=== PATIENT | male | born 1945 | race Caucasian/White ===

== ENCOUNTER 2018-04-30 20:34 | Emergency (ER) | payer BC, OTHER ==
--- NOTE | 2018-04-30 22:46 | EDPHY ---
H & P Time Seen by Provider: 04/30/18 21:36 HPI/ROS: CHIEF COMPLAINT: Cough, congestion HISTORY OF PRESENT ILLNESS: Patient is a 71-year-old male who presents emergency department with chest congestion. The patient states that on Thursday he noted he had a ping-pong shot striking his right chest on a dresser. He had significant pain on his right chest. He had difficulty sleeping. On Thursday he went to the emergency department and had a chest x-ray which was reported as negative. He was given incentive spirometer and ibuprofen. He states that over the next 2 days he was doing okay. However today he began to developed some congestion in his chest. He feels as though he has a slight cough. He denies fevers or chills. No worsening pain. No leg pain or swelling. He recently traveled here from [place] for vacation. REVIEW OF SYSTEMS: 10 systems were reveiwed and are negative with the exception of the elements mentioned in the history of present illness. Past Medical/Surgical History: Includes hypertension, GERD Smoking Status: Never smoked Physical Exam: 36.9, 187/94, 80, 18, 96% on room air GENERAL: Well-appearing, in no acute distress, alert. HEENT: Eyes normal to inspection, normal pharynx, no signs of dehydration. NECK: Normal, supple. RESPIRATORY: Clear to auscultation bilaterally, no rales, rhonchi or wheezing. CVS: Regular rate and rhythm, no rubs, murmurs, or gallops. Chest wall: Patient has mild right lateral chest wall tenderness palpation. No crepitus. ABDOMEN: Soft, nontender, nondistended, no organomegaly. BACK: Normal to inspection, no CVA tenderness. SKIN: Normal color, no rash, warm, dry. No pallor. EXTREMITIES: No pedal edema, no calf tenderness, no Homans sign or cords, no joint swelling. NEURO/PSYCH: Alert and oriented, normal mood and affect, normal motor sensory exam. Constitutional: Initial Vital Signs Temperature (C) 36.9 C 04/30/18 20:41 Heart Rate 82 04/30/18 20:41 Respiratory Rate 18 04/30/18 20:41 Blood Pressure 187/94 H 04/30/18 20:41 O2 Sat (%) 96 04/30/18 20:41 O2 Delivery Mode Room Air Allergies/Adverse Reactions: acetazolamide [From Diamox Sequels] Allergy (Verified 04/30/18 20:38) azithromycin Allergy (Verified 04/30/18 20:39) Home Medications: Medication Instructions Recorded NK [No Known Home Meds] 04/30/18 Medical Decision Making - Diagnostics Imaging Results: Imaging Impressions Chest X-Ray 04/30/18 21:06 Impression: Probable nondisplaced lateral right sixth rib fracture. Findings discussed with Madyson Brooks April 30, 2018 at 2320 hours. ED Course/Re-evaluation: In the emergency department I discussed possible etiologies with the patient. I answered all his questions. I reviewed the chest x-ray report from his previous image. Chest x-ray was ordered. Chest x-ray: Please refer the dictated report by Dr. Parra. He may see a 6th rib fracture. No pneumothorax. No pneumonia. Discussed the result with the patient. I answered all his questions. He will continue to use incentive spirometry. He was given warnings prior to leaving. Will return with worsening symptoms. Differential Diagnosis: My differential includes but is not limited to pneumothorax, hemothorax, rib fracture, pneumonia, bronchitis, pulmonary embolus Departure - Departure Disposition: Home, Routine, Self-Care Clinical Impression: Cough Rib fracture Qualifiers: Encounter type: initial encounter Rib fracture type: single rib Fracture type: closed Laterality: left Qualified Code(s): S22.32XA - Fracture of one rib, left side, initial encounter for closed fracture Condition: Good Instructions: Rib Fracture (ED) Additional Instructions: Continue to use your incentive spirometer. Return with increasing pain, fever or shortness of breath. Referrals: GIL MONTANO [Other] - As per Instructions
[2018-05-01 03:47] VITALS: BP 134/66
== END 2018-04-30 23:45 | disposition home or self-care (01) ==
DX: S22.32XA Fracture of one rib, left side, initial encounter for closed fracture (principal); R09.89 Other specified symptoms and signs involving the circulatory and respiratory systems; I10 Essential (primary) hypertension; W22.8XXA Striking against or struck by other objects, initial encounter; Y92.9 Unspecified place or not applicable; Y99.9 Unspecified external cause status; Y93.9 Activity, unspecified